=== PATIENT | male | born 1990 | race Caucasian/White ===

== ENCOUNTER 2019-05-23 23:02 | Emergency (ER) | payer SELFPAY ==
[~2019-05-23] VITALS: Ht 170.2 cm; Wt 65.8 kg
--- NOTE | 2019-05-23 23:02 | NUR ---
PT IN WHEELCHAIR TO ER BED 11
[2019-05-23 23:05] VITALS: BP 106/57
[2019-05-23] MEDS ORDERED: NACL 0.9% 1,000 ML IV ONE (23:20)
--- NOTE | 2019-05-23 23:25 | NUR ---
CRITICAL LAB BA 441. BETTY MADE AWARE
[2019-05-23 23:42] LABS: BASOPHILS % (AUTO) 0.3 % (0.0-2.0); EOSINOPHILS % (AUTO) 0.2 % (0.0-4.0); HEMATOCRIT 45.5 % (36-52); HEMOGLOBIN 14.9 g/dL (12.0-18.0); LYMPHOCYTES # (AUTO) 1.5 K/uL (2.0-11.5); LYMPHOCYTES % (AUTO) 14.2 % (20.5-51.1); MEAN CORPUSCULAR HEMOGLOBIN 30 pg (27-31); MEAN CORPUSCULAR HGB CONC 33 g/dL (33-37); MEAN CORPUSCULAR VOLUME 92.2 fL (80-94); MONOCYTES # (AUTO) 0.3 K/uL (0.8-1.0); MONOCYTES % (AUTO) 2.5 % (1.7-9.3); NEUTROPHILS # (AUTO) 8.6 K/uL (1.8-7.7); NEUTROPHILS % (AUTO) 82.8 % (42.2-75.2); PLATELET COUNT (AUTO) 247 K/uL (140-450); RED BLOOD CELL COUNT(AUTO) 4.94 MIL/uL (4.20-6.10); RED CELL DISTRIBUTION WIDTH 12.5 % (11.6-13.7); WHITE BLOOD COUNT (AUTO) 10.4 K/uL (4.8-10.8)
[2019-05-23 23:43] LABS: BARBITURATE, URINE NEG. ng/ml (NEG <=200); BENZODIAZEPINE, URINE NEG. ng/mL (NEG <=200); CANNABINOID, URINE NEG. ng/mL (NEG <=50); COCAINE, URINE POS. ng/mL (NEG <=300); OPIATE, URINE NEG. ng/mL (NEG <=2000); PHENCYCLIDINE SCREEN,URINE NEG. ng/mL (NEG <=25)
--- NOTE | 2019-05-23 23:44 | NUR ---
28 Y/O MALE BIB FRIENDS AFTER HEAVY ALCOHOL INTOXICATION, FRIENDS DENY ANY DRUG USE. GCS 3. ABSENT GAG REFLEX. UNRESPONSIVE TO PAIN. PUPILS ARE 2MM PINPOINT, SLIGHTLY REACTIVE. RESPIRATIONS ARE EVEN AND UNLABORED. SPO2 DROPPING TO HIGH 80'S ON RA, SIMPLE FACE MASK APPLIED AT 4L. LUNG SOUNDS CLEAR IN BILAT LOBES. PATIENT NON REACTIVE TO PAIN/STERNAL RUB. BOWEL SOUNDS NORMOACTIVE. SUCTION AT BEDSIDE. CAP REFILL <3. VSS. NO PMH PER FRIENDS NKA PER FRIENDS
[2019-05-23 23:57] LABS: ANION GAP 11.6 (8-16); CARBON DIOXIDE 28.2 mmol/L (21-32); CREATININE 0.7 mg/dL (0.6-1.3); POTASSIUM 3.8 mmol/L (3.5-5.1); TOTAL BILIRUBIN 0.2 mg/dL (0.0-1.0)
[2019-05-24] MEDS ORDERED: MULTIVITAMIN-12 10 ML in NACL 0.9% 1,000 ML IV ONE (00:12)
[2019-05-24] MEDS ORDERED: FOLIC ACID 5 MG/ML SYR IM ONE (00:15)
[2019-05-24] MEDS ORDERED: MAG SULF 2000 MG/WATER PREMIX 50 ML IV ONE (00:15)
[2019-05-24] MEDS ORDERED: ONDANSETRON 4 MG/2 ML VIAL IVP ONE (00:15)
[2019-05-24] MEDS ORDERED: THIAMINE 200 MG/2 ML VIAL IM ONE (00:15)
[2019-05-24] MEDS ORDERED: MULTIVITAMIN-12 10 ML VIAL IV ONE (00:23)
--- NOTE | 2019-05-24 00:37 | NUR ---
RESP EVEN AND UNLABORED. GCS 3. ERMD AT BEDSIDE.
--- NOTE | 2019-05-24 01:19 | NUR ---
MERRILL CATHETER INSERTED, 15F. 350ML URINE OUTPUT RECEIVED. PT TOLERATED PROCEDURE WELL. RESP EVEN AND UNLABORED. VSS. HANDOFF REPORT GIVEN TO VIRGINIA VAZQUEZ
--- NOTE | 2019-05-24 01:25 | NUR ---
Report recieved from Gabe for continued care. Patient semi fowlers in bed. VSS on monitor. 4L O2 through simple mask.
--- NOTE | 2019-05-24 02:05 | NUR ---
Patient snoring loudly. ERMD made aware. Nasal Trumpet size 28 placed in right nostril per Dr. Mccray
--- NOTE | 2019-05-24 03:50 | NUR ---
Patient O2 reduced to 2L simple mask. SPO2 100% on monitor.
--- NOTE | 2019-05-24 04:40 | NUR ---
PATIENT RESPONSIVE TO PAINFUL STIMULI. EYES SHUT TIGHTLY.
--- NOTE | 2019-05-24 04:42 | NUR ---
PATIENT SEMI FOWERS IN BED. PATIENT VSS ON MONITOR.
[2019-05-24] MEDS ORDERED: NACL 0.9% 1,000 ML IV ONE ×2 (05:50→06:15)
--- NOTE | 2019-05-24 05:55 | NUR ---
pt taken to CT scan accompanied by Maulik ferrara and RN
--- NOTE | 2019-05-24 06:00 | NUR ---
PATIENT RESPONSIVE TO VERBAL STIMULI. GIVING HAND SIGNALS TO ANSWER QUESTIONS. PATIENT STILL REFUESING TO OPEN EYES. O2 SAT 98% ON ROOM AIR. ERMD AWARE.
--- NOTE | 2019-05-24 06:15 | NUR ---
patients girlfriend at bedside.
--- NOTE | 2019-05-24 06:57 | NUR ---
Dr Mccary at bedside.
--- NOTE | 2019-05-24 07:16 | NUR ---
RECEIVED REPORT FROM VIRGINIA VAZQUEZ. PT RESTING IN BED WITH GIRLFRIEND AT BEDSIDE. RESPIRATIONS EVEN AND UNLABORED. NO SIGNS OF DISTRESS. RESPONSIVE TO VERBAL STIMULI. INFUSING NS AT 150 ML/HR. MERRILL CATH IN PLACE.
--- NOTE | 2019-05-24 09:04 | NUR ---
DR. HEALY AT BEDSIDE
--- NOTE | 2019-05-24 10:06 | NUR ---
PT WITH EYES OPEN SPONTANEOUSLY AND RESPONDING TO QUESTIONING APPROPRIATELY BUT WITH SLIGHT DELAY. GIRLFRIEND AT BEDSIDE.
--- NOTE | 2019-05-24 10:22 | NUR ---
DR HEALY AT BEDSIDE
--- NOTE | 2019-05-24 10:54 | NUR ---
MERRILL CATH REMOVED BY [facility] A[facility] AND ASSISTANTS TEACHER.
--- NOTE | 2019-05-24 11:20 | NUR ---
Pupils equal and reactive to light bilaterally. Speech normal for patient. Patient is alert and oriented to person, place, time and event. Bilateral hand visitor service assistant equal. Bilateral foot push equal. Pt walked to bathroom without any asst.
[2019-05-24 11:35] VITALS: BP 104/68
== END 2019-05-24 11:30 | disposition home or self-care (01) ==
LOC: MED 23:02
DX: R40.4 Transient alteration of awareness (principal); F10.129 Alcohol abuse with intoxication, unspecified; F15.10 Other stimulant abuse, uncomplicated; F14.10 Cocaine abuse, uncomplicated
CPT/HCPCS: 36415; 70450; 72125; 80053; 80305; 85025; 96361; 96365; 96366; 96368; 96372; 96375; 99284; A9153; G0482; J2405; J3411; J3475; J3490; J7030